=== PATIENT | female | born 1960 | race Two or more races ===

== ENCOUNTER 2019-12-07 09:26 | Outpatient (CLI) | payer OTHER | END 2019-12-07 09:51 | disposition home or self-care (01) | LOC: TOM 09:26 | PROVIDERS: ATTEND Internal Medicine Gastroenterology | DX: R10.13 Epigastric pain (principal); K64.8 Other hemorrhoids; R19.4 Change in bowel habit; K56.600 Partial intestinal obstruction, unspecified as to cause ==